=== PATIENT | female | born 2000 | race American Indian/Alaskan Native ===

== ENCOUNTER 2023-06-08 20:05 | Emergency (ER) | payer MEDICAID ==
[~2023-06-08] VITALS: Ht 170.2 cm; Wt 126.3 kg
[2023-06-08 21:44] VITALS: TEMP 98.6
[2023-06-08 22:15] VITALS: BP 152/92; PULSE 78; RESP 18; O2SAT 93
[2023-06-08] MEDS ORDERED: metoclopramide 5 mg/ml inj IV ONE (22:20)
[2023-06-08] MEDS ORDERED: diphenhydrAMINE 50 mg/ml inj IV ONE (22:20)
[2023-06-08] MEDS ORDERED: normal saline 1000ML IV soln IVB ONE (22:20)
[2023-06-08] MEDS ORDERED: acetaminophen 1,000mg/100ml IV 100 ML IV STA (22:35)
== END 2023-06-08 23:29 | disposition left against medical advice (07) ==
LOC: ER 20:07
DX: R51.9 Headache, unspecified (principal); H54.7 Unspecified visual loss
CPT/HCPCS: 96361; 96374; 96375; 99284; J0131; J2765; J7030

== ENCOUNTER 2023-12-31 20:05 | Emergency (ER) | payer BC, MEDICAID ==
[~2023-12-31] VITALS: Ht 170.2 cm; Wt 131.8 kg
[2023-12-31] MEDS ORDERED: SILV50CR31 TOP (21:32)
[2023-12-31] MEDS ORDERED: HYDR-3965 PO (21:32)
[2023-12-31] MEDS: HYDROcodone/acetaminophen 10/325mg tab PO ONE (21:46)
[2023-12-31] MEDS: silver sulfadiazine cream 400gm jar TP STA (21:46)
[2023-12-31] MEDS: ondansetron 4mg rapidly disintigrating tab PO ONE (21:46)
[2023-12-31] MEDS: ketorolac trometh. 30mg/ml inj. IM ONE (21:47)
[2023-12-31 21:58] VITALS: BP 132/85; PULSE 99; RESP 16; TEMP 98; O2SAT 99
== END 2023-12-31 22:00 | disposition home or self-care (01) ==
LOC: ER 20:05
DX: T24.112A Burn of first degree of left thigh, initial encounter (principal); T24.111A Burn of first degree of right thigh, initial encounter; X08.8XXA Exposure to other specified smoke, fire and flames, initial encounter; Y93.89 Activity, other specified; Y92.89 Other specified places as the place of occurrence of the external cause; Y99.8 Other external cause status
CPT/HCPCS: 16000; 96372; 99284; J1885

== ENCOUNTER 2024-01-13 19:23 | Emergency (ER) | payer BC, MEDICAID ==
[~2024-01-13] VITALS: Ht 175.3 cm; Wt 132.0 kg
[2024-01-13 19:48] VITALS: BP 112/76; PULSE 80; RESP 17; TEMP 97.9; O2SAT 95
[2024-01-13 20:11] LABS: BILIRUBIN,URINE NEGATIVE (Neg); CLARITY,URINE SLIGHTLY CLOUDY (Clear); COLOR,URINE YELLOW (Yellow); GLUCOSE, URINE NEGATIVE (Neg); KETONES,URINE NEGATIVE (Neg); LEUKOCYTE ESTERASE ,URINE NEGATIVE (Neg); NITRITES, URINE NEGATIVE (Neg); OCCULT BLOOD,URINE TRACE-INTACT (Neg); PROTEIN,URINE TRACE mg/dl (Neg); UROBILINOGEN,URINE 0.2 E.U/dL (0.2-1.0)
[2024-01-13 20:12] LABS: UA COLLECTION TYPE CLN CATCH MIDSTREAM; URINE HCG NEGATIVE (NEG)
[2024-01-13 20:17] LABS: MUCUS STRANDS FEW /LPF (Neg); SQUAMOUS EPITHELIAL CELL,UR MANY /LPF (FEW)
[2024-01-13 20:18] LABS: BACTERIA,URINE FEW /HPF (Neg); RBC,URINE 0-2 /HPF (0-2)
[2024-01-13] MEDS ORDERED: PHEN-716 PO (21:17)
[2024-01-13] MEDS: CefTRIAXone 1000mg IM Kit (w/lidocaine diluent) IM ONE (21:36)
== END 2024-01-13 22:34 | disposition home or self-care (01) ==
LOC: ER 19:23
DX: N39.0 Urinary tract infection, site not specified (principal)
CPT/HCPCS: 81001; 81025; 96372; 99283; J0696

== ENCOUNTER 2024-03-01 18:53 | Emergency (ER) | payer BC, MEDICAID ==
[~2024-03-01] VITALS: Ht 170.2 cm; Wt 127.3 kg
[~2024-03-01 18:53] MED LIST: PHEN-716 PO
[2024-03-01 20:26] VITALS: BP 129/90; PULSE 78; RESP 14; TEMP 98; O2SAT 95
== END 2024-03-01 19:57 | disposition home or self-care (01) ==
LOC: ER 18:53
DX: U07.1 COVID-19 (principal); Z79.899 Other long term (current) drug therapy
CPT/HCPCS: 36415; 87811; 99283

== ENCOUNTER 2025-03-22 16:56 | Emergency (ER) | payer BC, MEDICAID ==
[~2025-03-22] VITALS: Ht 175.3 cm; Wt 126.0 kg
--- NOTE | 2025-03-22 17:46 | Physician Documentation ---
History of Present Illness ~ Chief Complaint: 5150 Stated Complaint: EVAL Time Seen by MD: 17:06 Primary Medical Doctor: natacha NUNEZ This 24-year-old female presents to the ED with a complaint of life frustration which led her to wanting to run out in the street to harm herself. 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 Medication Reconciliation Allergies: Coded Allergies: No Known Allergies (Unverified , 01/13/24) Scheduled Atorvastatin Calcium (Atorvastatin Calcium), 1 TAB PO DAILY, (Reported) Cetirizine HCl (Cetirizine HCl), 1 TAB PO DAILY, (Reported) Cholecalciferol (Vitamin D3) (Vitamin D3), 1 CAP PO DAILY, (Reported) Furosemide (Furosemide), 1 TAB PO DAILY, (Reported) Hydrocortisone (Hydrocortisone), 3 TAB PO DAILY, (Reported) Levothyroxine Sodium (Levothyroxine Sodium), 1 TAB PO DAILY, (Reported) Levothyroxine Sodium (Levothyroxine Sodium), 1 TAB PO DAILY, (Reported) Lisdexamfetamine Dimesylate (Vyvanse), 10 MG PO DAILY, (Reported) Lurasidone HCl (Lurasidone HCl), 80 MG PO QPM, (Reported) Melatonin (Melatonin), 2 CAP PO HS, (Reported) Omeprazole (Omeprazole), 1 CAP PO DAILY, (Reported) Potassium Chloride 8 MEQ* (Slow-K 8 Meq*), 1 CAP PO DAILY, (Reported) Semaglutide (Ozempic), 2 MG SQ Q7D, (Reported) Spironolactone (Spironolactone), 1 TAB PO DAILY, (Reported) [id number] Estr/Ethin Estra (Daysee 0.15-0.03-0.01 mg Tab), 1 TAB PO DAILY, (Reported) Scheduled PRN Trazodone HCl (Trazodone HCl), 2 TAB PO HS PRN for sleep, (Reported) Discontinued Medications Phenazopyridine HCl (Pyridium), 1 TAB PO Q8H Discontinued Reason: patient no longer taking Past Medical History Past Medical History: *[employer]* Past Surgical History: noncontributory Alcohol Use: Other Physical Exam Vital Signs: Temperature: 98.4, Heart Rate: 93, Respiratory Rate: 16, BP: 148/98, Pulse Oximetry: 97, Weight: 126.000 Oxygen Flow Rate: 0 Progress Results/Orders Results/Orders Completed Orders - EBONY HOLLEY MD Acetaminophen 325mg Tablet (Tylenol Tabl (03/23/25 10:25) Vital Signs 03/22/25 03/22/25 03/22/25 03/23/25 17:33 19:18 23:12 05:01 Temp 98.4 96.8 Pulse 93 99 Resp 16 16 18 15 B/P (MAP) 148/98 133/84 (100) Pulse Ox 97 94 O2 Flow Rate 0 03/23/25 03/23/25 03/23/25 06:49 08:32 10:55 Temp 98.0 Pulse 93 89 Resp 14 B/P (MAP) 130/82 Pulse Ox 98 Laboratory Tests Test 03/22/25 18:55 03/22/25 19:03 03/22/25 19:06 SARS-CoV-2 Antigen (Rapid) Negative White Blood Count 11.2 H Red Blood Count 5.28 Hemoglobin 14.1 Hematocrit 43.1 Mean Corpuscular Volume 81.7 Mean Corpuscular Hemoglobin 26.7 L Mean Corpuscular Hemoglobin Concent 32.7 L Red Cell Distribution Width 14.5 Platelet Count 276 Mean Platelet Volume 9.1 Neutrophils (%) (Auto) 53.2 Lymphocytes (%) (Auto) 38.0 Monocytes (%) (Auto) 5.9 Eosinophils (%) (Auto) 2.3 Basophils (%) (Auto) 0.6 Neutrophils # (Auto) 5.9 Lymphocytes # (Auto) 4.2 Monocytes # (Auto) 0.7 Eosinophils # (Auto) 0.3 Basophils # (Auto) 0.1 CBC Comment Sodium Level 143 Potassium Level 3.8 Chloride Level 109 H Carbon Dioxide Level 26.8 Anion Gap 7 L Blood Urea Nitrogen 19 H Creatinine 0.91 H Estimated GFR/1.73 m2 76 BUN/Creatinine Ratio 20.9 H Glucose Level 95 Calcium Level 9.1 Albumin 3.7 Thyroid Stimulating Hormone (TSH) 0.73 Chemistry Comments Ethyl Alcohol Level < 10 Urine Specimen Description Non-specified Urine Color Yellow Urine Clarity Slightly cloudy Urine pH 6.0 Urine Specific [place] 1.025 Urine Protein 30 H Urine Glucose (UA) Negative Urine Ketones Negative Urine Occult Blood Small Urine Nitrite Negative Urine Bilirubin Small Urine Urobilinogen 0.2 Urine Leukocyte Esterase Negative Urine RBC 3-10 Urine WBC 5-10 H Urine Squamous Epithelial Cells Many Urine Bacteria 1+ Urine Mucus Moderate Volume Urine Centrifuged 10 ml Urine HCG, Qualitative Negative Urine Comment Urine Opiates Screen Negative Urine Methadone Screen Negative Urine Fentanyl Screen Negative Urine Barbiturates Screen Negative Urine Phencyclidine Screen Negative Urine Amphetamines Screen Negative Urine Benzodiazepines Screen Negative Urine Cocaine Screen Negative Urine Cannabinoids Screen Negative Drug Screen Comment Medical Decision Making Findings Patient is medically cleared for mental health evaluation March 23 10:40: The patient is seen by [facility] production support consultant and 5150 hold was broken and mental health production support consultant the patient is safe to go home. Therefore patient is discharged from the emergency room. Differential Dx:Considerations: Include: Alcohol abuse, Anxiety, Bipolar disorder, Conversion disorder, Depression, Encephaloathy, Homicidal, Panic disorder, Personality disorder, Schizophrenia, Substance abuse, Suicidal, Other Departure Disposition: 01 HOME / SELF CARE / HOMELESS Impression: Primary Impression: Behavioral disorder Additional Impression: History of developmental delay Condition: Stable Additional Instructions: Transfer orders for [facility]: At this time there is no evidence of an emergent medical condition that would preclude (admission/transfer) to a psychiatric unit via [facility] protocol for further psychiatric, as well as medical evaluation and treatment. At this time I have no reason to believe that transfer via [facility] protocol would have serious medical compromise in the patient's health. Referrals: NO PRIMARY CARE PROVIDER (PCP) Education Educated: Patient, Other (Caregiver) Signature Scribe Signature: g Attestation: Scribed for Oracio Ordonez Molder Offbearer by Oracio Olivia NP . 03/22/25 22:16 ORACIO ORDONEZ NP Mar 22, 2025 17:46 EBONY HOLLEY MD Mar 23, 2025 10:42
[2025-03-22 19:15] LABS: MEAN PLATELET VOLUME 9.1 FL (7.4-10.4); RED CELL DISTRIBUTION WIDTH 14.5 % (11.5-14.5)
[2025-03-22 19:39] LABS: CREATININE 0.91 MG/DL (0.40-0.90); TOTAL CARBON DIOXIDE 26.8 MMOL/L (24-32); eCRCL 100 ML/MIN; eGFR 76 ML/MIN
[2025-03-22 20:07] LABS: ETHANOL < 10 MG/DL (<10)
[2025-03-22 20:19] LABS: LEUKOCYTE ESTERASE ,URINE NEGATIVE (Neg); NITRITES, URINE NEGATIVE (Neg); OCCULT BLOOD,URINE SMALL (Neg)
[2025-03-22 20:20] LABS: UA COLLECTION TYPE NON-SPECIFIED; URINE HCG NEGATIVE (NEG)
[2025-03-22 20:21] LABS: URINE AMPHETAMINE SCREEN NEGATIVE (Neg); URINE BARBITUATE SCREEN NEGATIVE (Neg); URINE BENZODIAZEPINES SCREEN NEGATIVE (Neg); URINE CANNABINOID SCREEN NEGATIVE (Neg); URINE COCAINE SCREEN NEGATIVE (Neg); URINE METHADONE SCREEN NEGATIVE (Neg); URINE OPIATE SCREEN NEGATIVE (Neg); URINE PHENCYCLIDINE SCREEN NEGATIVE (Neg)
[2025-03-22] MEDS ORDERED: HYDR5TAB14 PO (20:24)
[2025-03-22] MEDS ORDERED: LEVO125T8 PO (20:24)
[2025-03-22] MEDS ORDERED: OMEP20CA16 PO (20:24)
[2025-03-22] MEDS ORDERED: SEMA2PEN SQ (20:24)
[2025-03-22] MEDS ORDERED: LISD10CA PO (20:24)
[2025-03-22] MEDS ORDERED: LEVO150T8 PO (20:24)
[2025-03-22] MEDS ORDERED: POTA8CAP20 PO (20:24)
[2025-03-22] MEDS ORDERED: L-NO1TBD14 PO (20:24)
[2025-03-22] MEDS ORDERED: TRAZ-256 PO (20:24)
[2025-03-22] MEDS ORDERED: SPIR25TA5 PO (20:24)
[2025-03-22] MEDS ORDERED: ATOR20TA66 PO (20:24)
[2025-03-22] MEDS ORDERED: FURO40TA4 PO (20:24)
[2025-03-22] MEDS ORDERED: CHOL20002 PO (20:24)
[2025-03-22] MEDS ORDERED: LURA80TA4 PO (20:24)
[2025-03-22] MEDS ORDERED: CETI10TA14 PO (20:24)
[2025-03-22] MEDS ORDERED: MELA3CAP2 PO (20:25)
[2025-03-22 20:34] LABS: MUCUS STRANDS MODERATE /LPF (Neg); SQUAMOUS EPITHELIAL CELL,UR MANY /LPF (FEW)
[2025-03-22] MEDS: ondansetron 4mg rapidly disintigrating tab PO ONE (23:11)
[2025-03-23 06:49] VITALS: RESP 14
[2025-03-23] MEDS: ETHIN ESTRA PO SCH (08:00)
[2025-03-23] MEDS: lisdexamfetamine dimesylate 10mg capsule PO SCH (08:00)
[2025-03-23] MEDS: NORGEST ETH ESTR PO SCH (08:00)
[2025-03-23] MEDS: potassium chloride 8mEq ER tablet PO SCH (08:32)
[2025-03-23] MEDS: cholecalciferol (vitamin D3) 1,000 unit (25mcg) tablet PO SCH (08:32)
[2025-03-23] MEDS: pantoprazole 40mg Tablet.DR PO SCH (08:33)
[2025-03-23] MEDS: levoTHYROXINE 75mcg tablet PO SCH (08:33)
[2025-03-23 10:55] VITALS: BP 130/82; PULSE 89; TEMP 98; O2SAT 98
[2025-03-23] MEDS ORDERED: Semaglutide (Ozempic) 2 MG SQ SCH (20:45)
== END 2025-03-23 10:59 | disposition home or self-care (01) ==
LOC: ER 16:56
DX: F91.9 Conduct disorder, unspecified (principal); Z79.899 Other long term (current) drug therapy; Z20.822 Contact with and (suspected) exposure to COVID-19
CPT/HCPCS: 36415; 80048; 80305; 80320; 81001; 81025; 84443; 85025; 87811; 99285